=== PATIENT | female | born 1960 | race Caucasian/White ===

== ENCOUNTER 2016-11-06 09:39 | Outpatient (CLI) | payer OTHER ==
--- NOTE | 2016-11-06 10:11 | DIAGNOSTIC IMAGING REPORT ---
PROCEDURE: US SOFT TISSUE THYR/NECK/HEAD INDICATION: DYSPHAGIA;HYPOTHYROIDISM TECHNIQUE: Salas scale and color Doppler sonographic images of the thyroid gland were obtained. COMPARISON: None. FINDINGS: RIGHT LOBE: Measures 2.3 x 0.7 x 1 cm. LEFT LOBE: Measures 2.2 x 0.7 x 0.8 cm. There is a 5 mm lower pole echogenic nodule with hypoechoic rim, likely an adenoma. ISTHMUS: Measures 1.7 mm IMPRESSION: 1. Atrophic thyroid gland with left lobe small probable adenoma
== END 2016-11-06 23:00 ==
LOC: US SRH 09:39
DX: R13.10 Dysphagia, unspecified (principal); E03.4 Atrophy of thyroid (acquired)